=== PATIENT | female | born 1945 | race Hispanic/Latino ===

== ENCOUNTER 2017-07-03 13:14 | Outpatient (CLI) | payer MEDICARE, OTHER ==
--- NOTE | 2017-07-03 15:33 | XRay Report ---
ROUTINE CHEST, TWO VIEWS: HISTORY: Cough. The trachea, heart, mediastinal contour, lung carbajal and bony thorax are unremarkable. IMPRESSION: Unremarkable chest x-ray.
== END 2017-07-03 13:15 | disposition home or self-care (01) ==
LOC: XRAY 13:14
PROVIDERS: ATTEND Physician Assistant
DX: R05 Cough (principal)
CPT/HCPCS: 71046

== ENCOUNTER 2018-01-18 07:23 | Day surgery (SDC) | payer MEDICARE, OTHER ==
[2018-01-18] MEDS ORDERED: NACL 0.9% 500 ML 500 ML IV SCH (08:00)
[2018-01-18 08:25] LABS: Basophils # (Auto) 0.1 K/mm3 (0.0-0.1); Basophils % (Auto) 0.9 % (0.0-1.8); Eosinophils # (Auto) 0.4 K/mm3 (0.0-0.4); Eosinophils % (Auto) 5.8 % (0.0-4.3); Hematocrit 35.5 % (30.3-42.9); Hemoglobin 12.2 gm/dl (10.1-14.3); Lymphocytes # (Auto) 1.5 K/mm3 (1.2-5.4); Lymphocytes % (Auto) 23.7 % (13.4-35.0); Mean Corpuscular HGB Conc 34 % (30-34); Mean Corpuscular Hemoglobin 31 pg (28-32); Mean Corpuscular Volume 89 fl (79-97); Monocytes # (Auto) 0.6 K/mm3 (0.0-0.8); Monocytes % (Auto) 10.1 % (0.0-7.3); Platelet Count 183 K/mm3 (140-440); Red Cell Distribution Width 13.7 % (13.2-15.2)
[2018-01-18 08:35] LABS: INR 0.89 (0.87-1.13)
[2018-01-18] MEDS ORDERED: ECOTRIN PO NR (08:58)
[2018-01-18] MEDS ORDERED: CALAN ONE (09:35)
[2018-01-18] MEDS ORDERED: HEPARIN 10,000 UNITS/10 ML ONE (09:35)
[2018-01-18] MEDS ORDERED: HEPARIN/NS 5000 UNIT/500ML(CATH LAB) 1,000 ML IR ONE (09:35)
[2018-01-18 09:36] LABS: Calcium 9.2 mg/dL (8.4-10.2)
[2018-01-18] MEDS ORDERED: XYLOCAINE 2% INFILTRATI ONE (09:36)
[2018-01-18] MEDS ORDERED: VERSED ONE (09:36)
[2018-01-18] MEDS ORDERED: NITROGLYCERIN SYRINGE 0 ML ONE (09:36)
[2018-01-18] MEDS ORDERED: SUBLIMAZE ONE (09:37)
[2018-01-18] MEDS ORDERED: HEPARIN/NS 5000 UNIT/500ML(CATH LAB) 500 ML IR ONE (10:42)
--- NOTE | 2018-01-18 11:26 | Cardiac Catherization Report ---
CARDIAC CATHETERIZATION INDICATION FOR PROCEDURE: The patient is a 72-year-old white female, patient of Dr. Joe Wells with history of hypertension, obstructive sleep apnea, depression, obesity and echocardiogram showing mild aortic regurgitation and aortic stenosis. She is having symptoms of feeling tiredness and shortness of breath. There is a family history of coronary disease. She has a stress nuclear imaging performed, which did not show any significant ischemia; however, because of her symptoms of shortness of breath and family history she would like to have a definitive diagnosis to rule out coronary artery disease. As mentioned above, the patient has echocardiogram done on 07/06/2017, which showed ejection fraction of 55-60% with thickened and calcified aortic valve with a mean aortic valve gradient of 24 mmHg and also moderate aortic regurgitation noted. The patient was explained of the procedure, potential complications and alternatives of therapy available. The patient would like to proceed with cardiac catheterization. She is aware of alternative of medical therapy. DESCRIPTION OF PROCEDURE: The patient was brought to the catheterization laboratory in a fasting condition. Right wrist area and forearm thoroughly cleansed with Betadine solution. Sterile drapes were applied. Local anesthesia was achieved using 2% Xylocaine. The patient after evaluating for moderate sedation, was sedated at 10:19 a.m. with IV Versed and fentanyl. Subsequently, right radial artery puncture was made using 21-gauge arterial puncture needle. Subsequently, 5-Australian slender sheath was introduced. The patient received 5 mg of intra-arterial verapamil and 3000 units of intravenous heparin. Coronary angiography was performed using multipurpose catheter. Left and right coronary angiography was performed followed by using a JR4 catheter and a wire to enter the left ventricle. Subsequently, Warners catheter was introduced into the left ventricle. Left ventriculogram was performed in VICENTE projection. Simultaneous LV and aortic pressures were measured and also pullback was made. At the end of the procedure, catheter and sheath were removed. Good hemostasis was achieved during the procedure. There was a small hematoma around the right radial artery. Following findings were noted: HEMODYNAMICS: Opening aortic pressure 164/86. Left ventricular pressure 183/42. There is a [id number] gradient of 19 mmHg with a mean gradient of 27 mmHg across the aortic valve. Instantaneous peak gradient of 44.1 mmHg noted. At the end of the procedure, catheter and sheath removed. Good hemostasis was achieved with pressure bandage. No untoward complications noted. It is to be noted the patient was sedated with IV Versed and fentanyl starting at 10:19 a.m. and sedation monitoring ended at 10:53 a.m. The patient was monitored throughout with EKG monitoring, pulse oximetry and hemodynamic monitoring. The patient's pulse oximetry was around 93% throughout. Right coronary artery dominant vessel arises normally from right coronary cusp, angiographically smooth and normal. Left coronary artery arises normally from left coronary cusp. Left main, LAD and its branches, circumflex artery and its branch are angiographically smooth and normal. Left ventriculogram done in VICENTE projection using an injection showed normal sized left ventricle with normal contractility. Mitral regurgitation could not be evaluated because of limited amount of dye. FINAL IMPRESSION: 1. Normal sized left ventricle with markedly elevated end diastolic pressure of 42 mmHg. 2. Mild aortic stenosis with mean gradient of 27.8 mmHg noted. 3. Normal coronary angiography was noted. At this time, the patient does not have any significant coronary artery disease, has mild aortic stenosis and also has moderate aortic regurgitation on the echocardiogram. Considering the above angiographic picture, the patient will be continued on risk factor modification and medical therapy. Findings were explained to the patient, she understands. JOB# [id number] JUANA/NELI
[2018-01-18] MEDS ORDERED: PROVENTIL IH ONE (11:29)
[2018-01-18] MEDS ORDERED: PROVENTIL IH PRN (13:05)
[2018-01-18 16:24] VITALS: BP 140/63
--- NOTE | 2018-01-19 10:09 | Short Stay Summary ---
Short Stay Documentation Date of service: 01/18/18 - History H&P: obtained from office - Allergies and Medications Current Medications: Allergies No Known Allergies Allergy (Unverified 07/03/17 13:15) Home Medications Medication Instructions Recorded Confirmed Last Taken Type Diclofenac Sodium 75 mg PO BID 01/18/18 01/18/18 01/17/18 History 75mg Fesoterodine Fumarate [Toviaz] 8 mg PO DAILY 01/18/18 01/18/18 01/17/18 History 8mg Furosemide [Lasix TAB] 20 mg PO DAILY 01/18/18 01/18/18 01/17/18 History 20mg Lisinopril [Zestril TAB] 40 mg PO DAILY 01/18/18 01/18/18 01/17/18 History 40mg Metoprolol [Lopressor TAB] 50 mg PO DAILY 01/18/18 01/18/18 01/17/18 History 50mg OXcarbazepine [Trileptal] 150 mg PO BID 01/18/18 01/18/18 01/17/18 History 150mg Oxybutynin Chloride [Ditropan Xl] 10 mg PO DAILY 01/18/18 01/18/18 01/17/18 History 10mg Vilazodone HCl [Viibryd] 40 mg PO DAILY 01/18/18 01/18/18 01/17/18 History 40mg Vortioxetine Hydrobromide 10 mg PO DAILY 01/18/18 01/18/18 01/17/18 History [Trintellix] 10mg clonazePAM [Clonazepam] 0.5 mg PO BID 01/18/18 01/18/18 01/17/18 History 0.5mg hydroCHLOROthiazide [HCTZ] 25 mg PO DAILY 01/18/18 01/18/18 01/17/18 History 25mg oxyCODONE [Roxicodone TAB] 5 mg PO Q6H PRN 01/18/18 01/18/18 01/17/18 History 5mg traZODone [Desyrel] 50 mg PO HS 01/18/18 01/18/18 01/17/18 History 50mg - Brief post op/procedure progress note Date of procedure: 01/18/18 Pre-op diagnosis: fatigue and SOB Post-op diagnosis: other (mild ) Procedure: [facility]- see dictated cath report Anesthesia: local Estimated blood loss: none Condition: stable - Disposition Condition at discharge: Good Disposition: DC-01 TO HOME OR SELFCARE - Discharge Diagnoses (1) Aortic stenosis, mild Status: Chronic (2) HTN (hypertension) Status: Chronic (3) JATIN (obstructive sleep apnea) Status: Chronic Short Stay Discharge Plan Activity: advance as tolerated Diet: low salt Wound: open to air, keep clean and dry, per your surgeon's advice Follow up with: JUMANA WELLS MD [Primary Care Provider] - 7 Days Forms: CardCath PCI D/C Instructions
== END 2018-01-18 16:20 | disposition home or self-care (01) ==
LOC: CATHLABREC 07:23
PROVIDERS: ATTEND Internal Medicine
DX: I35.2 Nonrheumatic aortic (valve) stenosis with insufficiency (principal); I10 Essential (primary) hypertension; G47.33 Obstructive sleep apnea (adult) (pediatric); K21.9 Gastro-esophageal reflux disease without esophagitis; F32.9 Major depressive disorder, single episode, unspecified; M19.90 Unspecified osteoarthritis, unspecified site; E66.9 Obesity, unspecified; Z68.37 Body mass index [BMI] 37.0-37.9, adult; Z79.899 Other long term (current) drug therapy; Z82.49 Family history of ischemic heart disease and other diseases of the circulatory system; Z90.710 Acquired absence of both cervix and uterus; Z98.890 Other specified postprocedural states; Z80.0 Family history of malignant neoplasm of digestive organs; Z83.49 Family history of other endocrine, nutritional and metabolic diseases
CPT/HCPCS: 36415; 80048; 85025; 85610; 85730; 93005; 93010; 93458; 99156; 99157; C1751; C1769; C1894; J1644; J2250; J3010; J7040; Q9967

== ENCOUNTER 2019-02-10 15:52 | Emergency (ER) | payer MEDICARE ==
[2019-02-10 16:27] VITALS: BP 118/60
--- NOTE | 2019-02-10 17:04 | Emergency Department Report ---
Chief Complaint: Dental/Oral Stated Complaint: TOOTHACHE Time Seen by Provider: 02/10/19 16:38 - HPI History of Present Illness: This is a 73 y.o. F. that presents to the ER with Reports started on Monday. States intermittent pain for months. States tried to contact dentist and unable to Taking hydrocodone and took 3 penicillin antibiotic pills. Denies difficulty swallowing, eating, facial swelling, following up with a dentist, fever, chills, headache, nausea, vomiting, chest pain or SOB. - ROS Review of Systems: CONSTITUTIONAL: Denies fever and chills. Denies weight loss. HEENT: Admits dental pain. Denies changes in vision and hearing. RESPIRATORY: Denies congestion. Denies SOB. CV: Denies palpitations and CP. GI: Denies abdominal pain, nausea, vomiting and diarrhea. MSK: Denies myalgia and joint pain. SKIN: Denies rash and pruritus. NEUROLOGICAL: Denies headache and syncope. PSYCHIATRIC: Denies recent changes in mood. Denies anxiety and depression. - Exam Vital Signs: Vital Signs 02/10/19 16:25 Temperature 98.7 F Pulse Rate 91 H Respiratory 20 Rate Blood Pressure 118/60 O2 Sat by Pulse 93 Oximetry Physical Exam: GENERAL: Alert and oriented x 3. No acute distress. Well-nourished. EYES: EOMI. HENT: Dark black dental caries center #4 with gingival swelling, tenderness. Moist mucous membranes. LUNGS: Clear to auscultation bilaterally. No accessory muscle use. CARDIOVASCULAR: Regular rate and rhythm. No murmur. No JVD. ABDOMEN: Soft, non-tender and non-distended. EXTREMITIES: No edema. Non-tender. SKIN: No rashes or lesions. Warm. NEUROLOGIC: No focal neurological deficits. CN II-XII grossly intact, but not individually tested. PSYCHIATRIC: Cooperative. Appropriate mood and affect. MSE screening note: Focused history and physical exam performed. Due to findings the following was ordered: ED Medical Decision Making - Medical Decision Making This patient was examined by this provider. Dental caries and gingival swelling #4, no signs cyst pockets. Patient is discharged with amoxicillin and magic mouthwash. Instructed to continue taking prescribed pain medication from pain management. Follow up with a dentist for continued care. At time of discharge, the patient does not seem toxic or ill in appearance. No acute signs of distress noted. Patient agrees to discharge treatment plan of care. No further questions noted by the patient. ED Disposition for MSE Clinical Impression: Toothache, Dental caries Disposition: DC- TO HOME OR SELFCARE Is pt being admited?: No Does the pt Need Aspirin: No Condition: Stable Instructions: Toothache (ED), Dental Caries (ED) Prescriptions: Nystas/Diphen/Xyl Visc/Mylanta [Magic Mouthwash] 30 ml MM Q4H #100 ml Amoxicillin [Trimox CAP] 500 mg PO BID #14 capsule Referrals: [facility] [Provider Group] - 3-5 Days [facility] [Provider Group] - 3-5 Days Time of Disposition: 17:19
== END 2019-02-10 17:24 | disposition home or self-care (01) ==
LOC: ED 15:52
DX: K02.9 Dental caries, unspecified (principal)
CPT/HCPCS: 99282